=== PATIENT | female | born 1980 | race Caucasian/White ===

== ENCOUNTER 2018-10-01 16:01 | Emergency (ER) | payer SELFPAY ==
[~2018-10-01] VITALS: Ht 167.6 cm; Wt 88.0 kg
[2018-10-01 16:07] VITALS: Ht 167.6 cm; Wt 88.0 kg
[2018-10-01] MEDS ORDERED: SODIUM CHLORIDE 0.9% 1L BAG IV* STA (16:32)
[2018-10-01] MEDS ORDERED: ACETAMINOPHEN 325 MG TAB PO STA (16:32)
--- NOTE | 2018-10-01 17:26 | ERD ---
ER Documentation Chief Complaint Chief Complaint Complains of a fever x 3 days HPI 38-year-old female presenting with 3 days of fever with associated nausea and vomiting. Vomiting is nonbloody and nonbilious. No associated abdominal pain. No associated dysuria, hematuria, diarrhea, constipation, chest pain, shortness of breath, URI symptoms, cough, back pain. No melena or hematochezia. ROS All systems reviewed and are negative except as per history of present illness. Medications Home Meds Active Scripts Ondansetron (Ondansetron Odt) 4 Mg Tab.rapdis, 4 MG PO Q6H PRN for NAUSEA AND/OR VOMITING, #10 TAB Prov:ANDRIY ANGUIANO MD 10/01/18 Ciprofloxacin Hcl* (Ciprofloxacin Hcl*) 500 Mg Tablet, 500 MG PO BID for 7 Days, TAB Prov:ANDRIY ANGUIANO MD 10/01/18 Allergies Allergies: Coded Allergies: No Known Allergy (Unverified , 10/01/18) PMhx/Soc History of Surgery: Yes (APPENDECTOMY) Anesthesia Reaction: No Hx Neurological Disorder: No Hx Respiratory Disorders: No Hx Cardiac Disorders: No Hx Psychiatric Problems: No Hx Miscellaneous Medical Probl: Yes (POLYCYSTIC OVARIAN DISEASE, diabetes) Hx Alcohol Use: No Hx Substance Use: No Hx Tobacco Use: No Smoking Status: Never smoker FmHx Family History: No coronary disease Physical Exam Vitals Vital Signs Date Temp Pulse Resp B/P (MAP) Pulse Ox O2 O2 Flow FiO2 Time Delivery Rate 10/01/18 101.7 100 24 144/69 100 Room Air 20:25 (94) 10/01/18 101.7 19:55 10/01/18 99.6 90 23 113/73 100 Room Air 18:30 (86) 10/01/18 100.7 107 22 131/85 100 Room Air 17:00 (100) 10/01/18 103.0 16:46 10/01/18 103.1 117 20 162/85 100 16:07 (110) Physical Exam Const: No acute distress, very well-appearing, nontoxic Head: Atraumatic Eyes: Normal Conjunctiva ENT: Normal External Ears, Nose and Mouth. Neck: Full range of motion. No meningismus. Resp: Clear to auscultation bilaterally Cardio: Tachycardic with regular rhythm, no murmurs Abd: Soft, minimal right upper quadrant tenderness with no rebound or guarding, non distended. Normal bowel sounds Skin: No petechiae or rashes Back: No midline or flank tenderness Ext: No cyanosis, or edema Neur: Awake and alert, oriented, normal speech, strength and sensations grossly intact. Psych: Normal Mood and Affect Result Diagram: 10/01/18 1631 10/01/18 1631 Results 24 hrs Laboratory Tests Test 10/01/18 16:29 10/01/18 16:31 10/01/18 16:43 POC Venous Lactate 1.0 mmol/L White Blood Count 7.8 10^3/ul Red Blood Count 4.79 10^6/ul Hemoglobin 12.2 g/dl Hematocrit 38.1 % Mean Corpuscular Volume 79.5 fl Mean Corpuscular Hemoglobin 25.5 pg Mean Corpuscular 32.0 g/dl Hemoglobin Concent Red Cell Distribution Width 13.1 % Platelet Count 271 10^3/UL Mean Platelet Volume 9.7 fl Immature Granulocytes % 0.300 % Neutrophils % 74.1 % Lymphocytes % 18.1 % Monocytes % 6.7 % Eosinophils % 0.4 % Basophils % 0.4 % Nucleated Red Blood Cells % 0.0 /100WBC Immature Granulocytes # 0.020 10^3/ul Neutrophils # 5.8 10^3/ul Lymphocytes # 1.4 10^3/ul Monocytes # 0.5 10^3/ul Eosinophils # 0.0 10^3/ul Basophils # 0.0 10^3/ul Nucleated Red Blood Cells # 0.0 10^3/ul Urine Color YELLOW Urine Clarity CLOUDY Urine pH 6.0 Urine Specific Harlan 1.024 Urine Ketones NEGATIVE mg/dL Urine Nitrite NEGATIVE mg/dL Urine Bilirubin NEGATIVE mg/dL Urine Urobilinogen 1+ mg/dL Urine Leukocyte Esterase 3+ Flaquita/ul Urine Microscopic RBC 97 /HPF Urine Microscopic WBC 95 /HPF Urine Squamous Epithelial Cells FEW /HPF Urine Bacteria FEW /HPF Urine Hemoglobin 2+ mg/dL Urine Glucose 3+ mg/dL Urine Total Protein NEGATIVE mg/dl Sodium Level 138 mmol/L Potassium Level 3.2 mmol/L Chloride Level 100 mmol/L Carbon Dioxide Level 27 mmol/L Anion Gap 11 Blood Urea Nitrogen 9 mg/dl Creatinine 0.54 mg/dl Est Glomerular Filtrat > 60 mL/min Rate mL/min Glucose Level 294 mg/dl Calcium Level 9.0 mg/dl Total Bilirubin 0.3 mg/dl Direct Bilirubin 0.00 mg/dl Indirect Bilirubin 0.3 mg/dl Aspartate Amino Transf (AST/SGOT) 19 IU/L Alanine 29 IU/L Aminotransferase (ALT/SGPT) Alkaline Phosphatase 146 IU/L Total Protein 8.5 g/dl Albumin 3.9 g/dl Globulin 4.60 g/dl Albumin/Globulin Ratio 0.84 Lipase 62 U/L POC Beta HCG, Qualitative NEGATIVE Current Medications Medications Dose Sig/Grecia Start Time Status Last (Trade) Ordered Route PRN Stop Time Admin Dose Reason Admin 650 mg ONCE STAT 10/01/18 DC 10/01/18 Acetaminophen PO 16:32 16:46 (Tylenol 10/01/18 16:35 Tab) Sodium 1,780 ml BOLUS OVER 2 10/01/18 DC 10/01/18 Chloride HOURS STAT 16:32 16:46 (NS) IV* 10/01/18 16:35 Ceftriaxone 50 ml @ ONCE ONCE 10/01/18 DC 10/01/18 Sodium 100 mls/hr IVPB 17:30 17:27 10/01/18 17:59 Potassium 40 meq ONCE STAT 10/01/18 DC 10/01/18 Chloride PO 17:54 18:10 (Klor-Con 20) 10/01/18 17:56 Ondansetron 4 mg ONCE STAT 10/01/18 DC 10/01/18 HCl (Zofran IV 17:54 18:10 Inj) 10/01/18 17:56 Magnesium 50 ml @ 25 ONCE ONCE 10/01/18 DC 10/01/18 Sulfate mls/hr IVPB 18:00 18:10 10/01/18 19:59 Ibuprofen 600 mg ONCE ONCE 10/01/18 DC 10/01/18 (Motrin) PO 20:00 19:55 10/01/18 20:01 Procedures/MDM EMERGENT LABS AND DIAGNOSTIC STUDIES: Lab Results above were reviewed and interpreted by me. CBC: no anemia or evidence of infection CMP: Hypokalemia, hyperglycemia without acidosis. No evidence of acidosis, renal failure, hypoglycemia, liver disease, or biliary obstruction Lactate within normal limits without evidence of sepsis or tissue hypoperfusion UA: Evidence of infection Radiology Results as interpreted by Radiology below were reviewed by David Anguiano MD: Chest x-ray unremarkable with no acute abnormalities Ultrasound gallbladder: IMPRESSION: 1. Echogenic liver compatible with nonspecific parenchymal disease, consider steatosis. 2. Cholelithiasis without evidence of cholecystitis or biliary obstruction. Initial Nursing notes reviewed. Previous Medical Records requested via the Electronic Health Record. EMERGENCY DEPARTMENT COURSE / MEDICAL DECISION MAKING: Patient is presenting with fever and tachycardia, concerning for sepsis but without any obvious source of infection. However she is very well-appearing on exam. She was treated with IV fluids and work-up showed evidence of UTI. Exam is not consistent with pyelonephritis. She was treated with Rocephin IV. Upon reevaluation, her symptoms have improved. Tachycardia has resolved. Patient feels comfortable going home with strict return precautions. Patient was dis charged with a prescription for treatment of UTI. She was tolerating fluids by mouth prior to discharge. Patient's blood pressure was elevated (>120/80) but appears stable without evidence of hypertensive emergency or urgency. The patient was counseled about the risks of hypertension and urged to pursue outpatient monitoring and therapy within a week with their primary care physician. 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
[2018-10-01] MEDS ORDERED: CEFTRIAXONE 1 GM/50 ML (PMX) 50 ML IVPB ONE (17:30)
[2018-10-01] MEDS ORDERED: POTASSIUM CHLORIDE (SR) 20 MEQ TAB PO STA (17:54)
[2018-10-01] MEDS ORDERED: ONDANSETRON 4 MG INJ IV STA (17:54)
[2018-10-01] MEDS ORDERED: MAGNESIUM SULFATE 2 GM/50 ML 50 ML IVPB ONE (18:00)
[2018-10-01] MEDS ORDERED: CIPR500T4 PO ×2 (19:19→19:21)
[2018-10-01] MEDS ORDERED: ONDA4TAB14 PO ×2 (19:19→19:21)
[2018-10-01] MEDS ORDERED: IBUPROFEN 600 MG TAB PO ONE (20:00)
[2018-10-01 20:25] VITALS: BP 144/69; PULSE 100; RESP 24
== END 2018-10-01 20:30 | disposition home or self-care (01) ==
LOC: E/R 16:01
DX: N39.0 Urinary tract infection, site not specified (principal); A41.9 Sepsis, unspecified organism; E87.6 Hypokalemia; E11.65 Type 2 diabetes mellitus with hyperglycemia
CPT/HCPCS: 36415; 71045; 76705; 80053; 81001; 81025; 83605; 83690; 85025; 87040; 87086; 96374; 96375; 99285; J0696; J2405; J3475; J7030